=== PATIENT | male | born 2000 | race Two or more races ===

== ENCOUNTER 2025-02-02 13:00 | Emergency (ER) | payer OTHER ==
[~2025-02-02] VITALS: Ht 170.2 cm; Wt 65.8 kg
[2025-02-02] MEDS ORDERED: DIPHENHYDRAMINE HCL 50 MG CAPSULE PO STA (16:56)
[2025-02-02] MEDS ORDERED: DIPHENHYDRAMINE HCL 12.5 MG/5 ML BLIST.PACK PO ONE (18:59)
[2025-02-02 20:04] LABS: BASO % 0.3 % (0.1-1.2); EOS # 0.10 (0.04-0.54); EOS % 1.6 % (0.7-7.0); LYMPH # 1.08 (1.18-3.74); LYMPH % 17.4 % (19.3-53.1); MEAN PLATELET VOLUME 10.60 fl (9.4-12.4); MONO # 0.61 (0.24-0.82); MONO % 9.8 % (4.7-12.5); NEUT # 4.40 (1.56-6.13); NEUT % 70.7 % (34.0-71.1); RED CELL DISTRIBUTION WIDTH 12.4 % (11.6-14.4)
[2025-02-02 20:19] LABS: ERYTHROCYTE SEDIMENTATION RATE 21 mm/hr (0-15)
[2025-02-02 20:27] LABS: COVID-19 AG NEGATIVE (NEGATIVE)
[2025-02-02 20:30] LABS: ALT/SGPT 35.0 U/L (12-78); AST/SGOT 22.0 U/L (15-37); BILIRUBIN TOTAL 0.58 mg/dL (0.3-1.2); BUN CREA RATIO 16.0 (7.0-25.0); CREATININE SERUM 0.86 mg/dL (0.70-1.30); GFR 109.25; GLOBULINA 4.2 G/DL (2.4-3.5); GLUCOSE FASTING 134.0 mg/dL (65-100); OSMOLALITY SERUM 280.0 MOSM/KG (275-295)
[2025-02-02] MEDS ORDERED: MUCINEX D ER 11 EACH PO (21:16)
== END 2025-02-02 22:01 | disposition home or self-care (01) ==
LOC: ER 13:01
PROVIDERS: Physician Assistant Medical
DX: B34.9 Viral infection, unspecified (principal); E03.8 Other specified hypothyroidism; Z20.822 Contact with and (suspected) exposure to COVID-19